=== PATIENT | female | born 1995 | race American Indian/Alaskan Native ===

== ENCOUNTER 2017-04-29 16:22 | Inpatient (IN) | payer OTHER, MEDICAID ==
[2017-04-29] MEDS ORDERED: LACTATED RINGERS 1,000 ML ONE (18:44)
[2017-04-29 18:53] LABS: Hematocrit 37.6 % (30.3-42.9); Hemoglobin 12.4 gm/dl (10.1-14.3); Mean Corpuscular HGB Conc 33 % (30-34); Mean Corpuscular Hemoglobin 30 pg (28-32); Mean Corpuscular Volume 90 fl (79-97); Platelet Count 206 K/mm3 (140-440); Red Blood Count 4.17 M/mm3 (3.65-5.03); White Blood Count 8.6 K/mm3 (4.5-11.0)
[2017-04-29 19:04] LABS: Lactate Dehydrogenase 187 units/L (91-180); Uric Acid 4.4 mg/dL (3.5-7.6)
[2017-04-29 19:24] LABS: Bilirubin,Urine NEG (Negative); Blood,Urine NEG (Negative); Ketones,Urine NEG (Negative); Leukocyte Esterase,Urine NEG (Negative); Mucus,Urine FEW /HPF; Nitrite,Urine NEG (Negative); Protein,Urine <15 mg/dL mg/dL (Negative); Urobilinogen,Urine < 2.0 mg/dL (<2.0); WBC,Urine < 1.0 /HPF (0.0-6.0)
[2017-04-29] MEDS ORDERED: PITOCin/NS 20 UNIT/1000ML DRIP 20,000 MILLIUNITS/1,000 ML BAG IV ONE (19:39)
[2017-04-29] MEDS ORDERED: LACTATED RINGERS 1,000 ML IV ONE (20:00)
[2017-04-29] MEDS ORDERED: MINERAL OIL PO PRN (20:01)
[2017-04-29] MEDS ORDERED: ZOFRAN IV PRN (20:01)
[2017-04-29] MEDS ORDERED: STADOL IV PRN (20:01)
[2017-04-29] MEDS ORDERED: ePHEDrine SULFATE IV PRN (20:01)
[2017-04-29] MEDS ORDERED: NARCAN 0.4 MG/1 ML IV PRN (20:01)
[2017-04-29] MEDS ORDERED: SUBLIMAZE IV PRN (20:01)
--- NOTE | 2017-04-29 20:11 | History and Physical Report ---
History of Present Illness Date of examination: 04/29/17 Date of admission: 04/29/17 17:18 Chief complaint: Induction of labor History of present illness: Pt is 21yo BF EDC 05/01/17; EGA 39 5/7 weeks presents from [facility] for induction of labor due to IUGR. She received care at [facility] since 27 weeks, and course has been unremarkable except for IUGR (5%). records are available but GBS is negative. Past History Past Medical History: no pertinent history Past Surgical History: no surgical history Family/Genetic History: none Social history: no significant social history, single - Obstetrical History Expected Date of Delivery: 05/01/17 Actual Gestation: 39 Week(s) 5 Day(s) : 2 Medications and Allergies Allergies Allergy/AdvReac Type Severity Reaction Status Date / Time No Known Allergies Allergy Verified 04/29/17 16:42 Active Meds: Active Medications Lactated Ringer's (Lactated Ringers) 1,000 mls @ 999 mls/hr IV BOLUS ONE Stop: 04/29/17 21:00 Review of Systems All systems: negative - Vital Signs Vital signs: Vital Signs Pulse Pulse Ox 105 H 98 04/29/17 16:53 04/29/17 16:53 Temp Pulse Resp BP Pulse Ox 98.3 F 79 14 144/88 99 04/29/17 17:01 04/29/17 20:00 04/29/17 19:38 04/29/17 20:00 04/29/17 20:00 - Physical Exam Breasts: Positive: deferred Cardiovascular: Regular rate Lungs: Positive: Clear to auscultation Abdomen: Positive: normal appearance Genitourinary (Female): Positive: normal external genitalia Vagina: Positive: normal moisture Uterus: Positive: enlarged Extremities: Positive: normal - Obstetrical FHR: category 1 Uterine Contraction Monitor Mode: External Cervical Dilatation: 2 (per nurse) Cervical Effacement Percentage: 50 Uterine Contraction Pattern: Irregular Uterine Tone Measurement Phase: Contraction Uterine Contraction Intensity: Mild Results Result Diagrams: 04/29/17 18:20 04/29/17 18:20 Abnormal lab results 04/29/17 Range/Units 18:20 Creatinine 0.4 L (0.7-1.2) mg/dL Lactate Dehydrogenase 187 H (91-180) units/L All other labs normal. Ultrasound: report reviewed Assessment and Plan - Patient Problems (1) 39 weeks gestation of Onset Date: 04/29/17 Current Visit: Yes Status: Acute Plan to address problem: A: IUP @ 39 5/7 weeks IUGR (5%) P: Admit to L&D for pitocin induction of labor (2) IUGR (intrauterine growth restriction) Onset Date: 04/29/17 Current Visit: Yes Status: Acute
[2017-04-29] MEDS ORDERED: BRETHINE SUB-Q PRN (20:12)
[2017-04-29] MEDS ORDERED: BRETHINE IVP PRN (20:13)
[2017-04-29] MEDS ORDERED: PITOCin/NS 20 UNIT/1000ML DRIP 20 UNITS/1,000 ML BAG IV SCH (21:00)
[2017-04-29] MEDS ORDERED: XYLOCAINE 2% INFILTRATI ONE (21:00)
[2017-04-29] MEDS ORDERED: PITOCin/NS 30 UNIT/500ML 30 UNITS/500 ML BAG IV SCH ×2 (21:00)
[2017-04-29] MEDS ORDERED: LACTATED RINGERS 1,000 ML IV SCH (21:00)
[2017-04-29] MEDS ORDERED: POLYCILLIN/NS 2 GM/100 ML 2 GM/100 ML BAG IV ONE (21:00)
[2017-04-30] MEDS ORDERED: POLYCILLIN/NS 1 GM/50 ML 1 GM/50 ML BAG IV SCH (00:05)
[2017-04-30] MEDS ORDERED: XYLOCAINE 2% INFILTRATI ONE (03:03)
--- NOTE | 2017-04-30 03:23 | Procedure Note ---
OB Delivery Note - Delivery Date of Delivery: 04/30/17 Surgeon: SAMUEL HAYWARD Estimated blood loss: 200cc - Vaginal Delivery presentation: vertex Delivery position: OA Intrapartum events: other(please specify) (IUGR) Delivery induction: oxytocin Delivery augmentation: rupture of membranes, pitocin Delivery monitor: external FHT, external uterine Route of delivery: Delivery placenta: spontaneous Delivery cord: 3 umbilical vessels Episiotomy: none Delivery laceration: 2nd degree Delivery repair: vicryl Anesthesia: local, intravenous Delivery comments: Infant delivered OA and placed on Mom's chest for [id number] bonding and delayed cord clamping. - Infant A at 1 minute: 8 at 5 minutes: 9 Infant Gender: Female (3458gms)
[2017-04-30] MEDS ORDERED: TYLENOL PO PRN (03:28)
[2017-04-30] MEDS ORDERED: PHENERGAN PR PRN (03:28)
[2017-04-30] MEDS ORDERED: DULCOLAX PR PRN (03:28)
[2017-04-30] MEDS ORDERED: NORCO 5/325 PO PRN (03:28)
[2017-04-30] MEDS ORDERED: BENADRYL PO PRN (03:28)
[2017-04-30] MEDS ORDERED: TUCKS PAD TP PRN (03:28)
[2017-04-30] MEDS ORDERED: PHENERGAN PO PRN (03:28)
[2017-04-30] MEDS ORDERED: ZOFRAN IV PRN (03:28)
[2017-04-30] MEDS ORDERED: LANSINOH TP PRN (03:28)
[2017-04-30] MEDS ORDERED: MILK OF MAGNESIA PO PRN (03:28)
[2017-04-30] MEDS ORDERED: PITOCin/NS 20 UNIT/1000ML DRIP 20,000 MILLIUNITS/1,000 ML BAG IV ONE (03:36)
[2017-04-30] MEDS ORDERED: SODIUM CHLORIDE FLUSH SYRINGE 10 ML IV PRN (04:00)
[2017-04-30] MEDS ORDERED: PITOCin/NS 20 UNIT/1000ML DRIP 20 UNITS/1,000 ML BAG IV SCH (04:00)
[2017-04-30] MEDS: MOTRIN PO SCH ×3 (05:46→17:15)
[2017-04-30] MEDS: PERCOCET 5/325 PO PRN (05:46)
[2017-04-30] MEDS: PRENATAL VITAMIN PO SCH (10:00)
[2017-04-30] MEDS: FEOSOL PO SCH (10:00)
[2017-04-30] MEDS: COLACE PO SCH (10:00)
[2017-04-30 18:54] LABS: Hematocrit 32.6 % (30.3-42.9); Hemoglobin 10.6 gm/dl (10.1-14.3)
[2017-05-01] MEDS ORDERED: M-M-R II VACCINE SUB-Q ONE (03:28)
[2017-05-01] MEDS ORDERED: BOOSTRIX IM ONE (06:00)
[2017-05-01] MEDS: MOTRIN PO SCH ×4 (06:15→17:25)
--- NOTE | 2017-05-01 08:16 | Progress Note ---
Assessment and Plan PPD# 1 s/p -Doing well P: -Continue care -Anticipate discharge in 24-48 hours - Patient Problems (1) (normal spontaneous vaginal delivery) Current Visit: Yes Status: Acute Subjective - Subjective Date of service: 05/01/17 Principal diagnosis: PPD# 1 Interval history: Patient seen and examined, stable with no issues doing well Patient reports: appetite normal, voiding normally, pain well controlled, flatus , ambulating normally, no dizzy ambulation, no nauseated : doing well Objective - Vital Signs Latest vital signs: Vital Signs Temp Pulse Resp BP 05/01/17 00:00 98.6 F 69 18 132/80 04/30/17 19:35 98.6 F 77 16 141/77 04/30/17 16:00 98.2 F 80 20 155/92 04/30/17 12:15 98.0 F 71 18 144/88 Intake and Output 04/30/17 05/01/17 05/01/17 22:59 06:59 14:59 Intake Total 400 700 Balance 400 700 Intake: Intake, Free Water 400 700 - Exam Abdomen: Present: normal appearance, soft. Absent: distention, tenderness, guarding, rigidity Uterus: Present: fundal height below umbilicus. Absent: tenderness Extremities: Present: normal
--- NOTE | 2017-05-01 08:18 | Discharge Summary ---
Providers - Providers Date of Admission: 04/29/17 17:18 Date of discharge: 05/02/17 Attending physician: SAMUEL HAYWARD Primary care physician: SAMUEL HAYWARD Hospitalization Reason for admission: induction of labor ( suspected IUGR), other Delivery: Episiotomy: none Laceration: 2nd degree Incision: dry, intact Other procedures: none complications: none Discharge diagnosis: IUP at term delivered [place] baby: female Hospital course: Uncomplicated course Condition at discharge: Good Disposition: DC-01 TO HOME OR SELFCARE - Discharge Diagnoses (1) (normal spontaneous vaginal delivery) Status: Acute Plan - Provider Discharge Summary Activity: no sex for 6 weeks, no heavy lifting 4 weeks, no strenuous exercise Diet: routine Additional instructions: [] Smoking cessation referral if applicable(refer to patient education folder for contact #) [] Refer to [facility]'s [facility] Booklet Call your doctor immediately for: * Fever > 100.5 * Heavy vaginal bleeding ( >1 pad per hour) * Severe persistent headache * Shortness of breath * Reddened, hot, painful area to leg or breast * Drainage or odor from incision. * Keep incision clean and dry at all times and follow doctor's instructions regarding bathing/showering - Follow up plan Follow up: SAMUEL HAYWARD MD [Primary Care Provider] - 6 Weeks
[2017-05-01] MEDS: COLACE PO SCH ×2 (11:59→22:15)
[2017-05-01] MEDS: FEOSOL PO SCH ×2 (12:00→22:14)
[2017-05-01] MEDS: PRENATAL VITAMIN PO SCH (12:00)
[2017-05-01] MEDS: PERCOCET 5/325 PO PRN (19:40)
[2017-05-02] MEDS: MOTRIN PO SCH ×2 (00:32→05:43)
[2017-05-02 10:40] VITALS: BP 138/72
== END 2017-05-02 11:03 | disposition home or self-care (01) | DRG 775 ==
LOC: TRG 16:22 → LD 17:18 → OB 04-30 04:55
PROVIDERS: ADMIT Obstetrics & Gynecology; ATTEND Obstetrics & Gynecology
PROC: 10E0XZZ Delivery of Products of Conception, External Approach (ICD-10-PCS; principal; 2017-04-29)
PROC: 0KQM0ZZ Repair Perineum Muscle, Open Approach (ICD-10-PCS; 2017-04-29)
PROC: 3E033VJ Introduction of Other Hormone into Peripheral Vein, Percutaneous Approach (ICD-10-PCS; 2017-04-29)
PROC: 3E0234Z Introduction of Serum, Toxoid and Vaccine into Muscle, Percutaneous Approach (ICD-10-PCS; 2017-04-29)
DX: O36.5930 Maternal care for other known or suspected poor fetal growth, third trimester, not applicable or unspecified (principal); O70.1 Second degree perineal laceration during delivery; Z3A.39 39 weeks gestation of pregnancy; Z37.0 Single live birth
CPT/HCPCS: 36415; 81001; 82565; 83615; 84450; 84460; 84550; 85014; 85018; 85027; 86850; 86900; 86901; 90471; 99211; G0463; J0595; J2405; J2590; J3010; J7120